=== PATIENT | female | born 1980 | race Caucasian/White ===

== ENCOUNTER 2020-09-18 12:53 | Outpatient (CLI) | payer MEDICAID ==
--- NOTE | 2020-09-18 14:15 | CT Report ---
PROCEDURE: LUMBAR SPINE WO INDICATIONS: LUMBAR BACK PAIN W/ RADICULOPATHY TECHNIQUE: Noncontrast 3 mm thick sections acquired from the T12 level to the sacrum. Sagittal and coronal refo rmats were constructed. For radiation dose reduction, the following was used: automated exposure co ntrol, adjustment of mA and/or kV according to patient size. COMPARISON: None. FINDINGS: Image quality: Excellent. Bones: No acute vertebral body compression fractures. No suspicious lytic or blastic bony lesions . Central spinal caliber is of normal overall caliber. No pars defects. This patient has transitional anatomy. For the purposes of this examination, the level with the last well-developed disc space is considered to be L5-S1. By this numbering scheme, there are vestigial ri bs seen at the L1 level. The L5 level is transitional and is mildly lumbarized. T12-L1: Normal in appearance. L1-L2: Normal in appearance. L2-L3: Normal in appearance. L3-L4: Normal in appearance. L4-L5: The disc height is well-preserved. Moderate disc bulge is seen, with a mild central disc pro trusion. There is mild right-sided and mild to moderate left-sided neuroforaminal narrowing seen. Mil d to moderate central canal narrowing is seen. L5-S1: Mild retrolisthesis is seen at this level. There is mild loss of disc height seen. Mild to m oderate disc bulge is seen, with a central disc protrusion. Mild to moderate facet hypertrophy is see n. There is moderate bilateral neuroforaminal narrowing seen. Moderate central canal narrowing is se en. Soft tissues: No retroperitoneal masses or hematomas. Visualized aorta is normal in caliber. 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 Transitional lumbar anatomy, including a partially lumbarized S1 level and tiny vestigial ribs at the L1 level. Reviewed by: Bryan Wood MD on 09/18/2020 1:14 PM [facility] Approved by: Bryan Wood MD on 09/18/2020 1:14 PM [facility] Station ID: [id number]
== END 2020-09-18 12:54 | disposition home or self-care (01) ==
LOC: DI 12:53
PROVIDERS: ATTEND Nurse Practitioner Family
DX: M51.26 Other intervertebral disc displacement, lumbar region (principal); M43.17 Spondylolisthesis, lumbosacral region; M51.37 Other intervertebral disc degeneration, lumbosacral region
CPT/HCPCS: 72131